=== PATIENT | female | born 1950 | race Caucasian/White ===

== ENCOUNTER 2017-06-12 12:14 | Emergency (ER) | payer MEDICARE, OTHER ==
[2017-06-12] MEDS ORDERED: Ativan 2 MG/1 ML VIAL IM ONE (12:36)
[2017-06-12] MEDS ORDERED: Ativan 2 MG/1 ML VIAL ONE (12:40)
--- NOTE | 2017-06-12 12:58 | ERPHSYRPT ---
- History of Present Illness Time Seen by Provider: 06/12/17 12:53 Source: patient, family Exam Limitations: no limitations Patient Subjective Stated Complaint: 4 weeks post op from left knee surg, c/o insreased anxiety for last few days, has hx of anxiety and took some old xanax without relief. Triage Nursing Assessment: 4 weeks post op from left knee surg, c/o insreased anxiety for last few days, has hx of anxiety and took some old xanax without relief. vss, no fever, aox3, in room with patient. Left knee looks good incision intact Physician History: 4 weeks post op from left knee surg, c/o insreased anxiety for last few days, has hx of anxiety and took some old xanax without relief. has hx of off and on panic attacks, as well as some of narcotics pain meds are making her depressed and give her anxiety symptoms Timing/Duration: week(s) Context related to: other Associated Symptoms: anxiety Allergies/Adverse Reactions: erythromycin base Allergy (Verified 04/25/15 15:31) Sulfa (Sulfonamide Antibiotics) Allergy (Verified 04/25/15 15:31) Home Medications: Calcium/Mag Oxide/Vitamin D3 [Coral Calcium 1,000 mg Cap] 1 each PO DAILY [History] Citalopram Hydrobromide 20 mg* [ceLEXa 20 MG] 20 mg PO 5XD 04/25/15 [History] Meclizine HCl 25 mg PO DAILY PRN PRN 04/25/15 [History] Hx Tetanus, Diphtheria Vaccination/Date Given: Yes Hx Influenza Vaccination/Date Given: Yes Hx Pneumococcal Vaccination/Date Given: No - Past Medical History Pertinent Past Medical History: Yes Neurological History: No Pertinent History Cardiac History: Hypertension Respiratory History: No Pertinent History Endocrine Medical History: Hypothyroidism Musculoskeletal History: Osteoarthritis Psycho-Social History: Anxiety Other Medical History: HEART MURMUR - Past Surgical History Past Surgical History: Yes Gastrointestinal: Appendectomy Musculoskeletal: Joint Replacement, Orthopedic Surgery Female Surgical History: Hysterectomy Other Surgical History: left knee 4 weeks ago no issues - Social History Smoking Status: Never smoker Exposure to second hand smoke: No Drug Use: none Patient Lives Alone: No (family) - Review of Systems Constitutional: No Fever, No Chills Eyes: No Symptoms Ears, Nose, & Throat: No Symptoms Respiratory: No Cough, No Dyspnea Cardiac: No Chest Pain, No Edema, No Syncope Abdominal/Gastrointestinal: No Abdominal Pain, No Nausea, No Vomiting, No Diarrhea Genitourinary Symptoms: No Dysuria Musculoskeletal: No Back Pain, No Neck Pain Skin: No Rash Neurological: No Dizziness, No Focal Weakness, No Sensory Changes Psychological: Anxiety, Depression, Emotional Lability Endocrine: No Symptoms All Other Systems: Reviewed and Negative - Nursing Vital Signs Nursing Vital Signs: Initial Vital Signs Temperature 97.7 F 06/12/17 12:22 Pulse Rate 94 H 06/12/17 12:22 Respiratory Rate 12 06/12/17 12:22 Blood Pressure 160/90 06/12/17 12:22 O2 Sat by Pulse Oximetry 97 06/12/17 12:22 Pain Scale Pain Intensity 0 - Physical Exam General Appearance: no apparent distress Eyes, Ears, Nose, Throat Exam: normal ENT inspection, moist mucous membranes Neck Exam: normal inspection, non-tender, supple Respiratory Exam: normal breath sounds, lungs clear, No respiratory distress Cardiovascular Exam: regular rate/rhythm, No edema Gastrointestinal/Abdominal Exam: soft, No tenderness, No distention Extremities Exam: normal inspection, normal range of motion, No evidence of injury, No edema Current Suicidality: denies suicide plan Neurological Exam: alert, 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, oriented x 3 Skin Exam: normal color, warm, dry, No rash SpO2: 97 Oxygen Delivery: Room Air - Course Nursing assessment & vital signs reviewed: Yes Ordered Tests: Medication Summary Discontinued Medications Generic Name Dose Route Start Last Admin Trade Name Kpq PRN Reason Stop Dose Admin Lorazepam 2 mg 06/12/17 12:36 06/12/17 12:42 Ativan 2 Mg/1 Ml Vial IM 06/12/17 12:37 2 mg STAT ONE Administration Lorazepam Confirm 06/12/17 12:40 Ativan 2 Mg/1 Ml Vial Administered 06/12/17 12:41 Dose 2 mg .ROUTE .STK-MED ONE - Progress Progress: unchanged Counseled pt/family regarding: diagnosis, need for follow-up - Departure Time of Disposition: 12:58 Departure Disposition: Home Clinical Impression: Anxiety and depression, Elevated blood pressure reading Condition: Stable Critical Care Time: No Referrals: SHERRELL MOONEY [Primary Care Provider] - Instructions: Anxiety -- Adult Additional Instructions: Please follow the instructions given to you. Please take your medication as prescribed if given. If symptoms recur or get worse, come back to the emergency room if you cannot reach your primary care physician, or call your primary care physician for an appointment. Again if your symptoms get worse, come back to the emergency room. Thanks for visiting emergency room, and let us take care of you. Please follow up with your physician for blood pressure problem. Prescriptions: Alprazolam 0.25 mg [xanAX 0.25 MG] 0.25 mg PO BIDPRN PRN #20 tablet PRN Reason: Anxiety Sertraline HCl 50 mg [Zoloft 50 mg Tablet] 50 mg PO QHS #30 tab
[2017-06-12 13:06] VITALS: BP 170/80; PULSE 87; O2SAT 96
== END 2017-06-12 13:05 | disposition home or self-care (01) ==
LOC: ED 12:14
DX: F41.9 Anxiety disorder, unspecified (principal); F32.9 Major depressive disorder, single episode, unspecified; R03.0 Elevated blood-pressure reading, without diagnosis of hypertension; Z98.890 Other specified postprocedural states
CPT/HCPCS: 96372; 99282; 99284; J2060

== ENCOUNTER 2021-01-09 09:24 | Emergency (ER) | payer MEDICARE, OTHER ==
[2021-01-09] MEDS ORDERED: BABY ASPIRIN 81 MG CHEW ONE (09:55)
[2021-01-09] MEDS: BABY ASPIRIN 81 MG CHEW PO ONE (09:56)
[2021-01-09 09:57] LABS: Absolute Neutrophil Ct (ANC) 3.79 (1.4-6.9); BASOPHIL % 0.6 % (0.0-0.4); Basophil (Absolute #) 0.04 (0-0.4); Eosinophil % 2.2 % (0.00-5.0); Eosinophil (Absolute #) 0.14 (0-0.5); Hematocrit 39.3 % (35-47); Hemoglobin 12.9 gm/dl (12.0-16.0); Lymphocyte (Absolute #) 1.84 (1.0-4.6); Lymphocytes % 29.3 % (24.0-44.0); Mean Corpuscular Hemoglobin 31.9 pg (26-32); Mean Corpuscular Hgb Concent. 32.8 g/dl (32-36); Mean Platelet Volume 10.1 fl (7.5-11.0); Monocyte (Absolute #) 0.47 (0.0-1.3); Monocytes % 7.5 % (0.0-12.0); Neutrophil % 60.4 % (36.0-66.0); Platelet Count 307 K/mm3 (150-450); Red Blood Count 4.05 M/mm3 (4.1-5.4); Red Cell Distribution Width 12.9 % (11.5-14.0); White Blood Count 6.3 K/mm3 (4.0-10.5)
[2021-01-09 10:04] LABS: INR 1.04 (0.8-3.0); PROTIME 11.7 SECONDS (9.95-12.35)
--- NOTE | 2021-01-09 10:07 | XRAY ---
Indication: Chest pain. Comparison: April 25, 2019. Portable chest again demonstrates normal heart, lungs, and bony thorax with incidental tiny left upper lobe calcified granuloma and right shoulder surgery.
--- NOTE | 2021-01-09 10:09 | ERPHSYRPT ---
- History of Present Illness Time Seen by Provider: 01/09/21 09:40 Historian: patient Exam Limitations: no limitations Patient Subjective Stated Complaint: Chest pain Triage Nursing Assessment: Patient brought down to ER via w/c per GIA Adkins. Patient A+O X3. Patient's skin pink, warm and dry. 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 Patient complains of constant dull pressure to chest that goes up to left ear. Patient's lung clear a/p gamal. Heart tones audible. Physician History: Patient is a 70-year-old white female who was seen at [place] with complaints of urinary tract infection. While there she did tell the nurse practitioner that she been having some upper chest pain rated 2 of 10-3 of 10 for 2 days. She has felt some short of breath with that she has had no nausea no vomiting no diaphoresis and it does seem to be somewhat worse with climbing stairs etc. risk factors are negative for diabetes positive for hypertension negative for family history positive for hyperlipidemia and negative for smoking. She does have a history of a heart murmur and is followed by Dr. Calderon for that. She also has problems with arthritis. Timing/Duration: day(s) (2), constant Activities at Onset: none Quality: aching, dullness, pressure Location: substernal Chest Pain Radiation: back Severity of Pain-Max: mild (3 of 10) Severity of Pain-Current: mild Modifying Factors: Improves With: exertion Associated Symptoms: shortness of breath Nitro Today/Relief: no nitro taken today Aspirin Treatment Today: 325 mg x 1, provided by ED Allergies/Adverse Reactions: erythromycin base Allergy (Verified 01/09/21 09:27) Sulfa (Sulfonamide Antibiotics) Allergy (Verified 01/09/21 09:27) Home Medications: Meclizine HCl 25 mg PO DAILY PRN PRN 04/25/15 [History] Metoprolol Succinate 50 mg [Toprol Xl 50 MG] 1 tab PO HS 01/09/21 [History] Pravastatin Sodium 40 mg PO DAILY 01/09/21 [History] Hx Tetanus, Diphtheria Vaccination/Date Given: Yes Hx Influenza Vaccination/Date Given: No Hx Pneumococcal Vaccination/Date Given: No Immunizations Up to Date: Yes Travel Risk - International Travel Have you traveled outside of the country in past 3 weeks: No - Coronavirus Screening Are you exhibiting any of the following symptoms?: No Close contact with a COVID-19 positive Pt in past 14-21 Days: No - Vaccine Status Have you recieved a Covid-19 vaccination: Yes 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 - Vaccination Dates Date of 2cond Vaccination (if applicable): 11/19/2020 - Review of Systems Constitutional: No Fever, No Chills Eyes: No Symptoms Ears, Nose, & Throat: No Symptoms Respiratory: Dyspnea, Dyspnea on Exertion (TREVINO), No Cough Cardiac: Chest Pain, No Edema, No Syncope Abdominal/Gastrointestinal: No Abdominal Pain, No Nausea, No Vomiting, No Diarrhea Genitourinary Symptoms: Dysuria, Frequency, Urgency Musculoskeletal: No Back Pain, No Neck Pain Skin: No Rash Neurological: No Dizziness, No Focal Weakness, No Sensory Changes Psychological: No Symptoms Endocrine: No Symptoms All Other Systems: Reviewed and Negative - Past Medical History Pertinent Past Medical History: Yes Neurological History: Migraines Cardiac History: Hypertension, Other Respiratory History: No Pertinent History Endocrine Medical History: No Pertinent History Musculoskeletal History: No Pertinent History Psycho-Social History: Anxiety Other Medical History: Heart mumur - Past Surgical History Past Surgical History: Yes Gastrointestinal: Appendectomy Musculoskeletal: Joint Replacement, Orthopedic Surgery Female Surgical History: Hysterectomy Other Surgical History: left knee, fusion to L4-L5 - Social History Smoking Status: Never smoker Exposure to second hand smoke: No Drug Use: none Patient Lives Alone: No (family) - Female History Hx Now: No - Nursing Vital Signs Nursing Vital Signs: Initial Vital Signs Temperature 98.2 F 01/09/21 09:33 Pulse Rate 58 L 01/09/21 09:33 Respiratory Rate 18 01/09/21 09:33 Blood Pressure 161/84 01/09/21 09:33 O2 Sat by Pulse Oximetry 96 01/09/21 09:33 Pain Scale Pain Intensity 2 - Physical Exam General Appearance: no apparent distress, alert Eye Exam: PERRL/EOMI, eyes nml inspection Ears, Nose, Throat Exam: normal ENT inspection, moist mucous membranes Neck Exam: normal inspection, non-tender, supple, full range of motion Respiratory Exam: normal breath sounds, chest tenderness, lungs clear, No respiratory distress Cardiovascular Exam: regular rate/rhythm, normal heart sounds Gastrointestinal/Abdomen Exam: soft, No tenderness, No mass Back Exam: normal inspection, No CVA tenderness, No vertebral tenderness Extremity Exam: normal inspection, normal range of motion Neurologic Exam: alert, oriented x 3, cooperative, normal mood/affect, sensation nml, No motor deficits Skin Exam: normal color, warm, dry SpO2: 96 - Course Nursing assessment & vital signs reviewed: Yes EKG Interpreted by Me: RATE (57), Sinus Rhythm, NORMAL AXIS, NORMAL INTERVALS, NORMAL QRS, NORMAL ST-T - Radiology Exams Chest X-ray Interpretation: Reviewed by me, Other (Radiologist interpretation included a portable chest that appeared stable with a tiny left upper lobe calcified granuloma and right shoulder surgery.) Ordered Tests: Active Orders 24 hr Category Date Time Status Employee Services Manager STAT Care 01/09/21 09:45 Active EKG-ER Only STAT Care 01/09/21 09:43 Active IV Insertion STAT Care 01/09/21 09:43 Active CHEST 1 VIEW (PORTABLE) Stat Exams 01/09/21 09:44 Completed CBC W DIFF Stat Lab 01/09/21 09:35 Completed CK-Creatinine Phosphokinase Stat Lab 01/09/21 09:35 Completed CMP Stat Lab 01/09/21 09:35 Completed D-DIMER QUANTITATIVE Stat Lab 01/09/21 09:35 Completed NT PRO BNP Stat Lab 01/09/21 09:35 Completed PROTIME WITH INR Stat Lab 01/09/21 09:35 Completed PTT Stat Lab 01/09/21 09:35 Completed SED RATE [Erythrocyte Sedimentation Rate] Stat Lab 01/09/21 09:35 Completed TROPONIN Q3H Lab 01/09/21 09:35 Completed TROPONIN Q3H Lab 01/09/21 11:30 Received TROPONIN Q3H Lab 01/09/21 15:45 Ordered TROPONIN Q3H Lab 01/09/21 18:45 Ordered TROPONIN Q3H Lab 01/09/21 21:45 Ordered UA W/RFX UR CULTURE Stat Lab 01/09/21 09:52 Ordered Medication Summary Discontinued Medications Generic Name Dose Route Start Last Admin Trade Name Freq PRN Reason Stop Dose Admin Aspirin 324 mg 01/09/21 09:43 01/09/21 09:56 Baby Aspirin 81 Mg Chew PO 01/09/21 09:44 324 mg STAT ONE Administration Aspirin Confirm 01/09/21 09:55 Baby Aspirin 81 Mg Chew Administered 01/09/21 09:56 Dose 324 mg .ROUTE .STK-MED ONE Morphine Sulfate 2 mg 01/09/21 09:43 Morphine Sulfate 2 Mg Inj IV 01/09/21 09:44 STAT ONE Lab/Rad Data: Laboratory Result Diagrams 01/09/21 09:35 01/09/21 09:35 Laboratory Results 01/09/21 01/09/21 01/09/21 Range/Units 09:35 09:35 09:35 WBC (4.0-10.5) K/mm3 RBC (4.1-5.4) M/mm3 Hgb (12.0-16.0) gm/dl Hct (35-47) % MCV (78-100) fl MCH (26-32) pg MCHC (32-36) g/dl RDW (11.5-14.0) % Plt Count (150-450) K/mm3 MPV (7.5-11.0) fl Gran % (36.0-66.0) % Eos # (Auto) (0-0.5) Absolute Lymphs (auto) (1.0-4.6) Absolute Monos (auto) (0.0-1.3) Lymphocytes % (24.0-44.0) % Monocytes % (0.0-12.0) % Eosinophils % (0.00-5.0) % Basophils % (0.0-0.4) % Absolute Granulocytes (1.4-6.9) Basophils # (0-0.4) ESR 35 H (0-20) mm/hr PT 11.7 (9.95-12.35) SECONDS INR 1.04 (0.8-3.0) APTT 30.0 (25.3-37.0) SECONDS D-Dimer 477 (215-500) ng/mL Sodium (137-145) mmol/L Potassium (3.5-5.1) mmol/L Chloride (98-107) mmol/L Carbon Dioxide (22-30) mmol/L Anion Gap (5-15) MEQ/L BUN (7-17) mg/dL Creatinine (0.52-1.04) mg/dL Estimated GFR ML/MIN Glucose (74-106) mg/dL Calcium (8.4-10.2) mg/dL Total Bilirubin (0.2-1.3) mg/dL AST (14-36) U/L ALT (0-35) U/L Alkaline Phosphatase (38-126) U/L Creatine Kinase (30-135) U/L Troponin I < 0.012 (0.000-0.034) ng/mL NT-Pro-B Natriuret Pep (0-900) pg/mL Serum Total Protein (6.3-8.2) g/dL Albumin (3.5-5.0) g/dL 01/09/21 01/09/21 Range/Units 09:35 09:35 WBC 6.3 (4.0-10.5) K/mm3 RBC 4.05 L (4.1-5.4) M/mm3 Hgb 12.9 (12.0-16.0) gm/dl Hct 39.3 (35-47) % MCV 97.0 (78-100) fl MCH 31.9 (26-32) pg MCHC 32.8 (32-36) g/dl RDW 12.9 (11.5-14.0) % Plt Count 307 (150-450) K/mm3 MPV 10.1 (7.5-11.0) fl Gran % 60.4 (36.0-66.0) % Eos # (Auto) 0.14 (0-0.5) Absolute Lymphs (auto) 1.84 (1.0-4.6) Absolute Monos (auto) 0.47 (0.0-1.3) Lymphocytes % 29.3 (24.0-44.0) % Monocytes % 7.5 (0.0-12.0) % Eosinophils % 2.2 (0.00-5.0) % Basophils % 0.6 (0.0-0.4) % Absolute Granulocytes 3.79 (1.4-6.9) Basophils # 0.04 (0-0.4) ESR (0-20) mm/hr PT (9.95-12.35) SECONDS INR (0.8-3.0) APTT (25.3-37.0) SECONDS D-Dimer (215-500) ng/mL Sodium 138 (137-145) mmol/L Potassium 4.0 (3.5-5.1) mmol/L Chloride 105 (98-107) mmol/L Carbon Dioxide 26 (22-30) mmol/L Anion Gap 10.8 (5-15) MEQ/L BUN 18 H (7-17) mg/dL Creatinine 0.52 (0.52-1.04) mg/dL Estimated GFR > 60.0 ML/MIN Glucose 99 (74-106) mg/dL Calcium 9.1 (8.4-10.2) mg/dL Total Bilirubin 0.40 (0.2-1.3) mg/dL AST 25 (14-36) U/L ALT 15 (0-35) U/L Alkaline Phosphatase 88 (38-126) U/L Creatine Kinase 34 (30-135) U/L Troponin I (0.000-0.034) ng/mL NT-Pro-B Natriuret Pep 282 (0-900) pg/mL Serum Total Protein 7.1 (6.3-8.2) g/dL Albumin 4.0 (3.5-5.0) g/dL - Progress Progress: improved Air Movement: good Blood Culture(s) Obtained: No Antibiotics given: No - Departure Departure Disposition: Home Clinical Impression: Costochondritis Condition: Stable Critical Care Time: No Referrals: SHERRELL MOONEY [Primary Care Provider] - Instructions: Chest Pain (DC) Prescriptions: Celecoxib [Celebrex] 200 mg PO BID 30 Days #60 capsule
[2021-01-09 10:17] LABS: ALKALINE PHOSPHATASE 88 U/L (38-126); ANION GAP 10.8 MEQ/L (5-15); BLOOD UREA NITROGEN 18 mg/dL (7-17); CHLORIDE 105 mmol/L (98-107); CK-Creatinine Phosphokinase 34 U/L (30-135); Calcium 9.1 mg/dL (8.4-10.2); Carbon Dioxide 26 mmol/L (22-30); Creatinine 1 0.52 mg/dL (0.52-1.04); EST GLOMERULAR FILTRATION RATE > 60.0 ML/MIN; Glucose 99 mg/dL (74-106); NT PRO BNP 282 pg/mL (0-900); SGOT/AST 25 U/L (14-36); SGPT/ALT 15 U/L (0-35); SODIUM 138 mmol/L (137-145); Total Protein 7.1 g/dL (6.3-8.2)
[2021-01-09 12:19] VITALS: BP 160/82; PULSE 56; O2SAT 97
[2021-01-09] MEDS: MORPHINE SULFATE 2 MG INJ IV ONE (12:19)
== END 2021-01-09 12:24 | disposition home or self-care (01) ==
LOC: ED 09:24
DX: M94.0 Chondrocostal junction syndrome [Tietze] (principal)
CPT/HCPCS: 36000; 36415; 71045; 80053; 81003; 82550; 83880; 84484; 85025; 85379; 85610; 85652; 85730; 86141; 87077; 87086; 87186; 93005; 93041; 99213; 99284; A9270-GY

== ENCOUNTER 2022-04-14 07:41 | Day surgery (SDC) | payer MEDICARE, OTHER ==
[2022-04-14] MEDS ORDERED: LIDOCAINE HCL 2% 100 MG/5 ML IJ ONE (07:42)
[2022-04-14] MEDS ORDERED: Depo-Medrol 40 MG/ML IM ONE (07:42)
[2022-04-14] MEDS ORDERED: DIPRIVAN 200 MG/20 ML IV ONE (08:56)
[2022-04-14] MEDS ORDERED: Lactated Ringers 1,000 ML IV ONE (09:13)
--- NOTE | 2022-04-14 10:45 | XRAY ---
Indication: Bilateral L4-S1 MBB. Intraoperative fluoroscopy provided for 25 seconds. Single digital spot image submitted for interpretation demonstrates posterior needle tips projecting over the expected left and right L4-S1 nerve roots. Correlate with intraoperative findings/report. Incidental L4-L5 spinous process fusion hardware.
--- NOTE | 2022-04-14 11:02 | XRAY ---
25 seconds fluoroscopy time in surgery for bilateral L4-S1 MBB.
== END 2022-04-14 09:18 | disposition home or self-care (01) ==
LOC: SDC-PAIN 07:41
PROVIDERS: ATTEND Psychiatry & Neurology Pain Medicine
DX: M47.816 Spondylosis without myelopathy or radiculopathy, lumbar region (principal); Z79.899 Other long term (current) drug therapy
CPT/HCPCS: 64493; 64494; 72020; 77002; J1030; J2704

== ENCOUNTER 2022-05-12 12:56 | Day surgery (SDC) | payer MEDICARE, OTHER ==
[2022-05-12] MEDS ORDERED: Depo-Medrol 40 MG/ML IM ONE (12:57)
[2022-05-12] MEDS ORDERED: Marcaine Mpf 0.5% Vial 30 Ml IJ ONE (12:57)
[2022-05-12] MEDS ORDERED: DIPRIVAN 200 MG/20 ML IV ONE (14:11)
[2022-05-12] MEDS ORDERED: Lactated Ringers 1,000 ML IV ONE (15:47)
--- NOTE | 2022-05-12 16:36 | XRAY ---
Indication: Bilateral L4-S1 MBB. Intraoperative fluoroscopy provided for 16 seconds. Single digital spot image submitted for interpretation demonstrates posterior needle tips projecting over the expected left and right L4-S1 nerve roots. Correlate with intraoperative findings/report. Incidental L4-L5 spinous process fusion hardware and partially visualized right SI joint fusion hardware.
--- NOTE | 2022-05-13 09:20 | XRAY ---
16 seconds fluoroscopy time in surgery for bilateral L4-S1 MBB.
== END 2022-05-12 14:45 | disposition home or self-care (01) ==
LOC: SDC-PAIN 12:56
PROVIDERS: ATTEND Psychiatry & Neurology Pain Medicine
DX: M47.816 Spondylosis without myelopathy or radiculopathy, lumbar region (principal); Z79.899 Other long term (current) drug therapy
CPT/HCPCS: 64493; 64494; 72020; 77002; J1030; J2704

== ENCOUNTER 2022-06-02 07:58 | Day surgery (SDC) | payer MEDICARE, OTHER ==
[2022-06-02] MEDS ORDERED: BUPIVACAINE 0.5% VIAL IJ ONE (07:59)
[2022-06-02] MEDS ORDERED: XYLOCAINE-MPF 1% 5ML SDV IJ ONE (07:59)
[2022-06-02] MEDS ORDERED: Depo-Medrol 40 MG/ML IM ONE (07:59)
[2022-06-02] MEDS ORDERED: Lactated Ringers 1,000 ML IV ONE (10:34)
--- NOTE | 2022-06-02 11:54 | XRAY ---
Indication: Right L4-S1 RFA. Intraoperative fluoroscopy provided for 1 minute 17 seconds. 3 digital spot images submitted for interpretation demonstrate posterior needle tips projecting over the expected right L4-S1 nerve roots. Correlate with intraoperative findings/report. Incidental L4-L5 spinous process fusion hardware and right SI joint hardware.
--- NOTE | 2022-06-02 11:59 | XRAY ---
1 minute and 17 seconds fluoroscopy time in surgery for right L4-S1 RFA.
[2022-06-02] MEDS ORDERED: DIPRIVAN 200 MG/20 ML IV ONE (15:54)
== END 2022-06-02 10:25 | disposition home or self-care (01) ==
LOC: SDC-PAIN 07:58
PROVIDERS: ATTEND Psychiatry & Neurology Pain Medicine
DX: M47.816 Spondylosis without myelopathy or radiculopathy, lumbar region (principal); Z79.899 Other long term (current) drug therapy
CPT/HCPCS: 64635; 64636; 72100; 77002; 99100; J1030; J2704

== ENCOUNTER 2022-06-16 12:02 | Day surgery (SDC) | payer MEDICARE, OTHER | END 2022-06-16 12:11 | disposition home or self-care (01) | LOC: SDC-PAIN 12:02 | PROVIDERS: ATTEND Psychiatry & Neurology Pain Medicine | DX: Z53.8 Procedure and treatment not carried out for other reasons (principal) ==

== ENCOUNTER 2022-06-23 14:34 | Day surgery (SDC) | payer MEDICARE, OTHER ==
[2022-06-23] MEDS ORDERED: Marcaine Mpf 0.5% Vial 30 Ml IJ ONE (14:35)
[2022-06-23] MEDS ORDERED: XYLOCAINE-MPF 1% 5ML SDV IJ ONE (14:35)
[2022-06-23] MEDS ORDERED: Depo-Medrol 40 MG/ML IM ONE (14:35)
[2022-06-23] MEDS ORDERED: Lactated Ringers 1,000 ML IV ONE (15:52)
[2022-06-23] MEDS ORDERED: DIPRIVAN 200 MG/20 ML IV ONE (16:23)
--- NOTE | 2022-06-24 07:42 | XRAY ---
Indication: Left L4-S1 RFA. Intraoperative fluoroscopy provided for 29 seconds. 3 digital spot image submitted for interpretation demonstrates posterior needle tips projecting over the expected left L4-S1 nerve roots. Correlate with intraoperative findings/report.
--- NOTE | 2022-06-24 22:05 | XRAY ---
29 seconds of fluoroscopy was used in surgery for a left L4-S1 RFA.
== END 2022-06-23 16:50 | disposition home or self-care (01) ==
LOC: SDC-PAIN 14:34
PROVIDERS: ATTEND Psychiatry & Neurology Pain Medicine
DX: M47.816 Spondylosis without myelopathy or radiculopathy, lumbar region (principal); Z79.899 Other long term (current) drug therapy
CPT/HCPCS: 64635; 64636; 72100; 77002; 99100; J1030; J2704

== ENCOUNTER 2023-01-10 10:56 | Day surgery (SDC) | payer MEDICARE, OTHER ==
--- NOTE | 2023-01-10 10:10 | HP ---
DATE OF SURGERY: 01/10/2023 HISTORY OF PRESENT ILLNESS: The patient is a 72-year-old having some upper epigastric radiating substernal to the back. She is worried about the heart but cardiac etiology ruled out. She was found to have gallstones. Denied any nausea or vomiting. Worse over last couple months. No specific trigger. Occasionally spicy food. PAST MEDICAL HISTORY: She wears corrective lenses. Cataracts in the past, sinus infections, anxiety, arthritis, headaches and migraines, hyperlipidemia. PAST SURGICAL HISTORY: Sinus surgery. Spinal surgery. Hysterectomy. Tubal. Carpal tunnel. Colonoscopy. Cataract. Foot surgery. Knee replacements in the past. MEDICATIONS: Trazodone, solifenacin succinate, pravastatin, omeprazole, metoprolol, meclizine, losartan, fluticasone, Astelin Nasal. ALLERGIES: SULFA (RASH). ERYTHROMYCIN (RASH). ACETAMINOPHEN (NAUSEA). HYDROCODONE (NAUSEA). FAMILY HISTORY: Arthritis, osteoporosis. Father had colon cancer. SOCIAL HISTORY: No smoking. Occasional alcohol use. REVIEW OF SYSTEMS: Fourteen systems reviewed. No chest pain or palpitations. Other systems negative or noncontributory as above and per preadmission questionnaire. PHYSICAL EXAMINATION: BMI 36. Height 5' 4". GENERAL: No acute distress. HEENT: Sclerae nonicteric. EOMI. Oral mucous membranes moist. NECK: No JVD. CHEST: Equal excursion, nonlabored breathing. CVS: Regular rate and rhythm. ABDOMEN: Soft, nontender. EXTREMITIES: No significant edema. NEURO: Alert, oriented, moving extremities symmetrically. PSYCH: Appropriate mood and affect. SKIN: Dry. IMPRESSION: Acute exacerbation chronic cholecystitis, symptomatic cholelithiasis. I feel the patient would benefit from cholecystectomy. She was shown the gallbladder risk sheet and pamphlet. Risks explained in detail including but not limited to bleeding or infection, risk of bowel injury or perforation, risk of trocar injury or hernia, risk of bile leak, bile duct injury, retained stone or sludge possibly requiring further procedure either open or ERCP, general risk of anesthesia, deep venous thrombosis, pulmonary embolism, pneumonia, perioperative risk of aches, pains, bloating, constipation and/or loose stools possibly even chronic in nature. Possibility of no improvement in her symptoms possibly requiring other endoscopy, other studies or referrals. She understands and agrees to the planned procedure, will proceed with laparoscopic cholecystectomy with possible open when OR time available.
[~2023-01-10 10:56] MED LIST: Sensorcaine 0.25% 10 ML ONE
[2023-01-10] MEDS ORDERED: Lactated Ringers 1,000 ML IV SCH (11:30)
[2023-01-10] MEDS ORDERED: MEFOXIN 2 GM PREMIX** 2 GM/50 ML ML IV ONE (11:42)
[2023-01-10] MEDS ORDERED: Lactated Ringers 1,000 ML IV ONE ×2 (11:42→14:19)
[2023-01-10] MEDS ORDERED: Pepcid 20 MG VIAL IV ONE ×2 (11:54→11:58)
[2023-01-10 11:58] LABS: Hematocrit 37.7 % (35-47); Hemoglobin 12.9 g/dL (12.0-16.0); Mean Cell Volume 94.3 fL (78-100); Mean Corpuscular Hemoglobin 32.3 pg (26-32); Mean Corpuscular Hgb Concent. 34.2 g/dL (32-36); Mean Platelet Volume 9.8 fL (7.5-11.0); Platelet Count 253 x10^3/uL (150-450); Red Cell Distribution Width 12.6 % (11.5-14.0)
[2023-01-10] MEDS ORDERED: MEFOXIN 2 GM PREMIX** 2 GM/50 ML ML IV SCH (12:00)
[2023-01-10] MEDS ORDERED: Transderm Scop 1.5MG Patch TOP PRN (12:05)
[2023-01-10 12:43] LABS: ALBUMIN 3.6 g/dL (3.5-5.0); ALKALINE PHOSPHATASE 87 U/L (38-126); ANION GAP 8.7 MEQ/L (5-15); BLOOD UREA NITROGEN 16 mg/dL (7-17); CHLORIDE 106 mmol/L (98-107); Calcium 8.6 mg/dL (8.4-10.2); Carbon Dioxide 30 mmol/L (22-30); Creatinine 1 0.61 mg/dL (0.52-1.04); EST GLOMERULAR FILTRATION RATE > 60.0 ML/MIN; Glucose 101 mg/dL (74-106); Potassium 4.5 mmol/L (3.5-5.1); SGOT/AST 25 U/L (14-36); SGPT/ALT 16 U/L (0-35); SODIUM 141 mmol/L (137-145); Total Protein 6.4 g/dL (6.3-8.2)
[2023-01-10] MEDS ORDERED: Propofol 1000 mg/100 ml Bottle 100 ML IV ONE (13:24)
[2023-01-10] MEDS ORDERED: OFIRMEV 100 ML IV ONE (13:24)
[2023-01-10] MEDS ORDERED: Magnesium Sulfate 1 GM/2 ML VIAL ONE (13:24)
[2023-01-10] MEDS ORDERED: SUBLIMAZE 100 MCG/2 ML ONE ×2 (13:30→15:07)
[2023-01-10] MEDS ORDERED: Xylocaine-Mpf 2% 5 Ml Vial ONE (13:30)
[2023-01-10] MEDS ORDERED: TORAdol 30 mg Injection ONE (13:30)
[2023-01-10] MEDS ORDERED: Zemuron 100 MG/10 ML ONE (13:30)
[2023-01-10] MEDS ORDERED: Decadron 4 MG INJ ONE (13:30)
[2023-01-10] MEDS ORDERED: Zofran 4 MG/2 ML VIAL ONE ×2 (13:30→16:44)
[2023-01-10] MEDS ORDERED: DIPRIVAN 200 MG/20 ML IV ONE ×2 (13:30→14:22)
[2023-01-10] MEDS ORDERED: BRIDION 200MG/2ML IV ONE (13:30)
[2023-01-10] MEDS ORDERED: Ketamine HCl 50 MG/ML ONE (13:53)
[2023-01-10] MEDS ORDERED: TRANDATE 20 MG/4 ML SYRINGE IV ONE ×2 (14:19→15:21)
[2023-01-10] MEDS ORDERED: Hydromorphone 1 mg/ml Injection ONE (15:30)
[2023-01-10] MEDS ORDERED: APRESOLINE 20 MG/ML INJ ONE (15:49)
[2023-01-10] MEDS ORDERED: Zofran 4 MG/2 ML VIAL IV STA (16:42)
[2023-01-10 16:54] VITALS: PULSE 64
[2023-01-10 16:56] VITALS: BP 158/80; O2SAT 93
--- NOTE | 2023-01-11 10:15 | OP ---
SURGERY DATE/TIME: 01/10/2023 1332 PREOPERATIVE DIAGNOSIS: Acute exacerbation of chronic cholecystitis, symptomatic cholelithiasis. POSTOPERATIVE DIAGNOSIS: Acute exacerbation of chronic cholecystitis, symptomatic cholelithiasis. PROCEDURE: Laparoscopic cholecystectomy. SURGEON: Dr. Jonny Hadley. ANESTHESIA: General. ESTIMATED BLOOD LOSS: Minimal. INDICATIONS: As noted above. Risks and benefits explained in detail but not limited to and consent obtained. DESCRIPTION OF PROCEDURE AND FINDINGS: The patient was taken to the operating room. General anesthesia induced. Abdomen prepped and draped in usual sterile fashion. After official time out and no disagreement with planned procedure, transverse incision made in the supraumbilical area. Fascia grasped, pulled upward Veress needle inserted and tested with saline. Pneumoperitoneum accomplished insufflating opening pressure of 0-15. A 5 mm bladeless port and camera were inserted without difficulty followed by two - 5 mm right upper quadrant ports and 11 mm epigastric port. The gallbladder was soft with some omental adhesions. It took some time to free these up to allow access to the gallbladder wall but slowly and carefully dissected posterior, lateral to anterior fashion slowly and carefully accomplished. The main cystic artery, cystic duct and infundibular junction slowly and carefully well skeletonized until the critical view was obtained anteriorly and posteriorly. Once this is accomplished, the cystic duct and cystic artery clipped x3 and divided in the usual fashion avoiding the large artery more medial. The gallbladder is slowly and carefully dissected free from its dense attachment to the liver bed. It is quite vascular requiring clipping additional oozing side branches on the cystic vein, cystic artery as necessary. The gallbladder is slowly and carefully dissected free. Just prior to releasing from final attachments to the anterior edge of the liver, one of the graspers tore a small pinhole in the gallbladder spilling a very small amount of bile. There is no evidence of any stone spillage. The liver bed re-inspected. Clips noted in place in the cystic duct and cystic artery stumps. No signs of any active bleeding or bile leakage from the liver bed itself. The gallbladder was released from its final attachments and placed in the provided sac pulled up in the epigastrium. The fascia spread slightly to allow gallbladder and bag to be pulled free and passed off. The fascial defect was then closed with puncture closure device with #1 Vicryl. Copious amount of irrigation accomplished lateral to the liver irrigating clear. Clips noted to be in place cystic duct and cystic artery stumps. No signs of any active bleeding or bile leakage. It was felt there was no benefit in drain placement. Pneumoperitoneum decompressed. The wound irrigated out. Skin incision closed with 4-0 Vicryl. Again, the epigastric fascial defect had been closed with puncture closure device with #1 Vicryl. Skin incision closed with 4-0 Vicryl. Steri-Strips and sterile dressing applied. 0.25% Marcaine local had been injected along the skin incision fascial defect. The patient tolerated the procedure well. There were no immediate complications. She was transferred to the recovery room in stable condition. Findings discussed with the family out in the waiting area.
== END 2023-01-10 17:00 | disposition home or self-care (01) ==
LOC: SDC 10:56
PROVIDERS: ATTEND Surgery
DX: K80.10 Calculus of gallbladder with chronic cholecystitis without obstruction (principal)
CPT/HCPCS: 36415; 80053; 85027; 93005; 96374; 99100; J0360; J0694; J1100; J1170; J1885; J2405; J2704; J3010; J3475; A9270-GY

== ENCOUNTER 2023-07-27 07:33 | Day surgery (SDC) | payer MEDICARE, OTHER ==
[2023-07-27] MEDS ORDERED: LIDOCAINE HCL 1% 50 MG/5 ML VL PF IJ ONE (07:34)
[2023-07-27] MEDS ORDERED: BUPIVACAINE 0.5% VIAL IJ ONE (07:34)
[2023-07-27] MEDS ORDERED: Depo-Medrol 40 MG/ML IM ONE (07:34)
[2023-07-27] MEDS ORDERED: DIPRIVAN 200 MG/20 ML IV ONE (08:53)
[2023-07-27] MEDS ORDERED: Lactated Ringers 1,000 ML IV ONE (09:41)
--- NOTE | 2023-07-27 11:26 | XRAY ---
Indication: Left L4-S1 RFA. Intraoperative fluoroscopy provided for 28 seconds. 4 digital spot image submitted for interpretation demonstrates posterior needle tips projecting over the expected left L4-S1 nerve roots. Correlate with intraoperative findings/report. Incidental L4-L5 spinous process fusion hardware.
--- NOTE | 2023-07-27 12:12 | XRAY ---
28 seconds of fluoroscopy was used in surgery for a left L4-S1 RFA.
== END 2023-07-27 09:30 | disposition home or self-care (01) ==
LOC: SDC-PAIN 07:33
PROVIDERS: ATTEND Psychiatry & Neurology Pain Medicine
DX: M47.816 Spondylosis without myelopathy or radiculopathy, lumbar region (principal); Z79.899 Other long term (current) drug therapy
CPT/HCPCS: 64635; 64636; 72100; 77002; 99100; J1030; J2001; J2704

== ENCOUNTER 2023-08-03 07:35 | Day surgery (SDC) | payer MEDICARE, OTHER ==
[2023-08-03] MEDS ORDERED: BUPIVACAINE 0.5% VIAL IJ ONE (07:36)
[2023-08-03] MEDS ORDERED: Depo-Medrol 40 MG/ML IM ONE (07:36)
[2023-08-03] MEDS ORDERED: LIDOCAINE HCL 1% 50 MG/5 ML VL PF IJ ONE (07:36)
[2023-08-03] MEDS ORDERED: DIPRIVAN 200 MG/20 ML IV ONE (08:50)
[2023-08-03] MEDS ORDERED: Lactated Ringers 1,000 ML IV ONE (10:33)
--- NOTE | 2023-08-03 11:46 | XRAY ---
Indication: Right L4-S1 RFA. Intraoperative fluoroscopy provided for 45 seconds. 8 digital spot images submitted for interpretation demonstrates posterior needle tips projecting over the expected right L4-S1 nerve roots. Correlate with intraoperative findings/report. Incidental L4-L5 spinous process fusion hardware.
--- NOTE | 2023-08-03 11:52 | XRAY ---
45 seconds of fluoroscopy was used in surgery for a right L4-S1 RFA.
== END 2023-08-03 09:29 | disposition home or self-care (01) ==
LOC: SDC-PAIN 07:35
PROVIDERS: ATTEND Psychiatry & Neurology Pain Medicine
DX: M47.816 Spondylosis without myelopathy or radiculopathy, lumbar region (principal); Z79.899 Other long term (current) drug therapy
CPT/HCPCS: 64635; 64636; 72100; 77002; 99100; J1030; J2001; J2704